=== PATIENT | male | born 1955 | race Caucasian/White ===

== ENCOUNTER 2022-08-11 10:16 | Emergency (ER) | payer OTHER ==
--- OUTSIDE RECORDS SUMMARY | 2022-08-11 10:18 | XMS REPORT | Continuity of Care Document ---
:1955 Author Organization [facility] t Address [address] [place] [address] Care Team Providers Name Role Phone Alberto Beal Attending Clinician Unavailable DALTON SIMON Attending Clinician Unavailable Problems Condition Condition Condition Status Onset Resolution Last Treating Co mments Source Name Details Category Date Date Treatment Clinician Date [id number] Primary Problem Comm on osteoarthr [facility] itis of - [facility] right hip [facility] [id number] Stage 3a Problem Comm on chronic [facility] kidney - [facility] disease [facility] [id number] Body mass Problem Com mon index Spirit [BMI] - [facility] 31.0-31.9, [facility] [id number] Mixed Problem Common hyperlipid Spirit emia - [facility] [id number] Essential Problem Comm on (primary) Spirit hypertensi - [facility] on [facility] [id number] Thoracic Problem Commo n aortic [facility] aneurysm - [facility] without [facility] [id number] Hypogonadi Problem Com mon sm in male Spirit - [facility]I [facility] [id number] Other Problem Common obesity Spirit due to - [facility] excess [facility] [id number] Elevated Problem Comm on hemoglobin Spirit - [facility] [id number] Subclinica Problem Com mon l Spirit hypothyroi - [facility] dism [facility] Allergies, Adverse Reactions, Alerts This patient has no known allergies or adverse reactions. Social History Social Habit Start Date Stop Date Quantity Comments Source History of Tobacco Use Co mmon [facility] - [facility] Sex Assigned At Com mon [facility] - [facility] Smoking Status Start Date Stop Date Source Former Smoker 2022-07-07 00:00:00 2022-07-07 00:00:00 [facility] Medications Ordered Filled Start Stop Current Ordering Indication Dosage Frequency Signature Comments Components Source Medication Medication Date Date Medication? Clinician (SIG) Name Name Sherita 7.5 Mobic 7.5 2021-08- No 1{table QD Mobic 7.5 MG MG 09-06 t} MG 00:00: 00:00 00 :00 amLODIPine amLODIPine No 1{table QD amLODIPine Besylate 10 Besylate 10 t} Besylate MG MG 10 MG Testosteron Testosteron No Testostero e e ne Aspirin Aspirin No 1{table QD Aspirin Adult Low Adult Low t} Adult Low Dose 81 MG Dose 81 MG Dose 81 MG Atorvastati Atorvastati No 1{table QD Atorvastat n Calcium n Calcium t} in Calcium 40 MG 40 MG 40 MG Testosteron Testosteron No QD Testostero e 50 MG/5GM e 50 MG/5GM ne 50 (1%) (1%) MG/5GM (1%) Carvedilol Carvedilol No 1{table BID Carvedilol 6.25 MG 6.25 MG t_with_ 6.25 MG food} Atorvastati Atorvastati No 1{table QD Atorvastat n Calcium n Calcium t} in Calcium 40 MG 40 MG 40 MG Testosteron Testosteron No QD Testostero e 50 MG/5GM e 50 MG/5GM ne 50 (1%) (1%) MG/5GM (1%) amLODIPine amLODIPine No 1{table QD amLODIPine Besylate 10 Besylate 10 t} Besylate MG MG 10 MG Carvedilol Carvedilol No 1{table BID Carvedilol 6.25 MG 6.25 MG t_with_ 6.25 MG food} Aspirin Aspirin No 1{table QD Aspirin Adult Low Adult Low t} Adult Low Dose 81 MG Dose 81 MG Dose 81 MG Testosteron Testosteron No Testostero e e ne Testosteron Testosteron No Testostero e e ne Atorvastati Atorvastati No 1{table QD Atorvastat n Calcium n Calcium t} in Calcium 40 MG 40 MG 40 MG amLODIPine amLODIPine No 1{table QD amLODIPine Besylate 10 Besylate 10 t} Besylate MG MG 10 MG Carvedilol Carvedilol No 1{table BID Carvedilol 6.25 MG 6.25 MG t_with_ 6.25 MG food} amLODIPine amLODIPine No 1{table QD amLODIPine Besylate 10 Besylate 10 t} Besylate MG MG 10 MG Testosteron Testosteron No Testostero e e ne Aspirin Aspirin No 1{table QD Aspirin Adult Low Adult Low t} Adult Low Dose 81 MG Dose 81 MG Dose 81 MG Atorvastati Atorvastati No 1{table QD Atorvastat n Calcium n Calcium t} in Calcium 40 MG 40 MG 40 MG Carvedilol Carvedilol No 1{table BID Carvedilol 6.25 MG 6.25 MG t_with_ 6.25 MG food} amLODIPine amLODIPine No 1{table QD amLODIPine Besylate 10 Besylate 10 t} Besylate MG MG 10 MG Testosteron Testosteron No Testostero e e ne Aspirin Aspirin No 1{table QD Aspirin Adult Low Adult Low t} Adult Low Dose 81 MG Dose 81 MG Dose 81 MG Atorvastati Atorvastati No 1{table QD Atorvastat n Calcium n Calcium t} in Calcium 40 MG 40 MG 40 MG Carvedilol Carvedilol No 1{table BID Carvedilol 6.25 MG 6.25 MG t_with_ 6.25 MG food} amLODIPine amLODIPine No 1{table QD amLODIPine Besylate 10 Besylate 10 t} Besylate MG MG 10 MG Testosteron Testosteron No Testostero e e ne Aspirin Aspirin No 1{table QD Aspirin Adult Low Adult Low t} Adult Low Dose 81 MG Dose 81 MG Dose 81 MG Atorvastati Atorvastati No 1{table QD Atorvastat n Calcium n Calcium t} in Calcium 40 MG 40 MG 40 MG Carvedilol Carvedilol No 1{table BID Carvedilol 6.25 MG 6.25 MG t_with_ 6.25 MG food} Aspirin Aspirin 2021- No 1{table QD Aspirin Adult Low Adult Low 03-21 t} Adult Low Dose 81 MG Dose 81 MG 00:00 Dose 81 MG :00 Vital Signs Vital Name Observation Time Observation Value Comments Source height 2022-07-07 08:00:00 75 [in_i] Common S [facility] weight 2022-07-07 08:00:00 262.9 [lb_av] [facility] temperature 2022-07-07 08:00:00 97.2 [degF] Common S [facility] bmi 2022-07-07 08:00:00 32.86 kg/m2 [facility] blood pressure 2022-07-07 08:00:00 128 mm[Hg] Common [facility] - systolic [facility] blood pressure 2022-07-07 08:00:00 83 mm[Hg] [facility] [place] [facility] blood pressure 2021-09-10 15:00:00 77 mm[Hg] [facility] diastolic [facility] height 2021-09-10 15:00:00 75 [in_i] [facility] weight 2021-09-10 15:00:00 253.1 [lb_av] [facility] temperature 2021-09-10 15:00:00 97.5 [degF] [facility] bmi 2021-09-10 15:00:00 31.63 kg/m2 [facility] oximetry 2021-09-10 15:00:00 96 % [facility] respiratory rate 2021-09-10 15:00:00 16 /min Comm on [facility] blood pressure 2021-09-10 15:00:00 113 mm[Hg] [facility] [place] [facility] height 2021-09-10 14:50:00 75 [in_i] [facility] weight 2021-09-10 14:50:00 253.1 [lb_av] [facility] temperature 2021-09-10 14:50:00 97.5 [degF] [facility] bmi 2021-09-10 14:50:00 31.63 kg/m2 [facility] oximetry 2021-09-10 14:50:00 96 % Common [facility] respiratory rate 2021-09-10 14:50:00 16 /min Comm on [facility] blood pressure 2021-09-10 14:50:00 113 mm[Hg] Common [facility] - systolic [facility] blood pressure 2021-09-10 14:50:00 77 mm[Hg] Common [facility] - diastolic [facility] height 2021-07-30 15:30:00 75 [in_i] Common [facility] weight 2021-07-30 15:30:00 255.6 [lb_av] Common [facility] temperature 2021-07-30 15:30:00 97.2 [degF] Common [facility] bmi 2021-07-30 15:30:00 31.94 kg/m2 Common [facility] oximetry 2021-07-30 15:30:00 96 % Common [facility] respiratory rate 2021-07-30 15:30:00 16 /min Comm on [facility] blood pressure 2021-07-30 15:30:00 136 mm[Hg] Common [facility] - systolic [facility] blood pressure 2021-07-30 15:30:00 84 mm[Hg] Common [facility] diastolic [facility] Procedures This patient has no known procedures. Encounters Start End Encounter Admission Attending Care Care Encounter Source Date/Time Date/Time Type Type Clinicians Facility Department ID 2022-07-07 [facility] [id number] Common 11:40:01 [facility] 2022-06-30 Outpatient Beal, STLMLC ST[facility] [id number] Common 13:33:02 [facility] 2021-09-04 Outpatient Beal, STLMLC ST[facility] [id number] Common 14:27:34 [facility] 2022-07-29 2022-07-29 Outpatient [facility] [id number] [employer] 00:00:00 00:00:00 , DALTON [address] 2022-07-29 2022-07-29 [facility] [id number] [employer] 00:00:00 00:00:00 , DALTON [address] 2022-07-07 2022-07-07 OFFICE STLMLC STLMLC [id number] Co mmon 00:00:00 00:00:00 VISIT NEW Spir it PT LEVEL 3 - CHI [facility] 2021-12-06 2021-12-06 (TEL) STLMLC STLMLC [id number] Co mmon 00:00:00 00:00:00 [facility] - [facility] 2021-09-12 2021-09-12 (TEL) STLMLC STLMLC [id number] Co mmon 00:00:00 00:00:00 [facility] - [facility] 2021-09-10 2021-09-10 SUB ANNUAL STLMLC STLMLC [id number] Common 00:00:00 00:00:00 MCR Spirit WELLNESS - CHI VISIT [facility] 2021-09-10 2021-09-10 OFFICE STLMLC STLMLC [id number] Co mmon 00:00:00 00:00:00 VISIT Spirit ESTAB PT - CHI LEVEL 4 [facility] 2021-07-30 2021-07-30 OFFICE STLMLC STLMLC [id number] Co mmon 00:00:00 00:00:00 VISIT NEW Spir it PT LEVEL 3 - [facility] Results This patient has no known results.
--- NOTE | 2022-08-11 11:19 | RAD REPORT ---
EXAM DESCRIPTION: RAD - Hand Right 3 View - 08/11/2022 10:58 am CLINICAL HISTORY: DEFORMITY, hand trauma COMPARISON: No comparisons FINDINGS: There is dorsal dislocation of the third and fourth middle phalanges from the PIP joints. No fracture component seen. There is approximately 10 mm overlap at the third PIP joint and 5 mm of o verlap at the fourth PIP joint. Elsewhere no other fracture or acute bone finding. No foreign body or significant soft tissue abnorma lity. IMPRESSION: Dorsal dislocation of the third and fourth middle phalanges from the PIP joints.
[2022-08-11] MEDS ORDERED: HYDROCODONE/APAP 7.5/325 MG TAB ONE (11:28)
[2022-08-11] MEDS ORDERED: LIDOCAINE 1% 20 ML MDV ONE (11:44)
--- NOTE | 2022-08-11 12:18 | RAD REPORT ---
EXAM DESCRIPTION: CT - Chest Abd Pelvis Wo Con - 08/11/2022 12:00 pm CLINICAL HISTORY: trauma, fall, right hand finger dislocations. COMPARISON: No comparisons TECHNIQUE: Axial 5 millimeter thick images of the chest, abdomen and pelvis were obtained without IV contrast. Oral contrast was administered. All CT scans are performed using dose optimization technique as appropriate and may include automated exposure control or mA/KV adjustment according to patient size. FINDINGS: The lungs are clear of suspicious mass, pulmonary contusion and infiltrate. A few scattere d less than 5 millimeter sized areas of nodularity are present. There are no specific follow-up recom mendations for nodules of these sizes. No pneumothorax or pleural effusion. No chest wall mass or ab normal axillary lymphadenopathy seen. Mediastinal and hilar regions show no mass or lymphadenopathy. No significant cardiac finding. The liver, spleen and pancreas show no significant findings for non contrast imaging. Gallbladder an d biliary tree are normal. No hydronephrosis or suspicious renal mass. Isodense masses and pyelonephritis cannot be excluded on non contrast imaging. No adrenal abnormalities. No urinary bladder abnormalities. No dilated bowel loops or focal ball bowel wall thickening. Minimal sigmoid diverticulosis without di verticulitis. No free air, free fluid or inflammatory stranding. No hernia, mass or bulky lymphadeno julio. Bony degenerative changes are present. No spinal compression fracture. No pathologic bone process. IMPRESSION: CT chest, abdomen and pelvis imaging shows no identifiable worse traumatic injury. No em ergent finding. Nonacute findings detailed in the body of the report.
--- NOTE | 2022-08-11 12:56 | ER ---
Nurse's Notes [facility] Name: Won Mosley Age: 67 yrs Sex: Male : 1955 Arrival Date: 08/11/2022 Time: 10:21 Bed 10 Private MD: Layton Marcial V Diagnosis: Dislocation of proximal interphalangeal joint of right middle finger, initial encounter;Dislocation of proximal interphalangeal joint of right ring finger, initial encounter Presentation: 08/11 11:01 Chief complaint: Patient states: pain and deformity noted to R 3rd and 4th fingers that ss occurred after falling and catching self. Coronavirus screen: Client denies travel out of the [place] in the last 14 days. Ebola Screen: Patient denies exposure to infectious person. Patient denies travel to an Ebola-affected area in the 21 days before illness onset. Initial Sepsis Screen: Does the patient meet any 2 criteria? No. Patient's initial sepsis screen is negative. Does the patient have a suspected source of infection? No. Patient's initial sepsis screen is negative. Risk Assessment: Do you want to hurt yourself or someone else? Patient reports no desire to harm self or others. Onset of symptoms was August 11, 2022. 11:01 Method Of Arrival: Ambulatory ss 11:01 Acuity: AUDRA 3 ss Triage Assessment: 13:05 General: Appears uncomfortable, Behavior is calm, cooperative, appropriate for age. ap3 Pain: Complains of pain in right hand. Musculoskeletal: Bony deformity noted of right hand. 13:05 Injury Description: Deformity. ap3 Historical: - Allergies: 11:02 No Known Allergies; ss - PMHx: 11:02 Hypertensive disorder; R hip impengement; ss - Immunization history:: Client reports receiving the 2nd dose of the Covid vaccine. - Social history:: Smoking status: Patient denies any tobacco usage or history of. Screenin:05 Abuse screen: Denies threats or abuse. Nutritional screening: No deficits noted. ap3 Tuberculosis screening: No symptoms or risk factors identified. 13:[address] [facility] ED Fall Risk Assessment (Adult) History of falling in the last 3 months, ap3 including since admission No falls in past 3 months (0 pts). Assessment: 10:50 Reassessment: called to triage. Pt to XRAY at this time VIA wheelchair with electrical test technician. 10:53 Reassessment: Pt back from XRAY at this time. Vital Signs: 11:01 BP 98 / 71; Pulse 64; Resp 16; Temp 97.2(TE); Pulse Ox 100% on R/A; Weight 113.4 kg; Height 6 ft. 3 in. (190.50 cm); Pain 8/10; 13:04 BP 120 / 83; ap3 11:01 Body Mass Index 31.25 (113.40 kg, 190.50 cm) ED Course: 10:21 Patient arrived in ED. am2 10:21 Layton Marcial MD is Private Physician. am2 10:22 Chioma Guadalupe FNP is [facility]. jh7 10:22 Carrol Palma MD is Attending Physician. [facility] 11:00 XRAY Hand RIGHT 3 View In Process Unspecified. EDMS 11:02 Triage completed. 11:02 Arm band placed on right wrist. 11:22 Aure Carrasquillo, ROSA is Primary Nurse. ap3 12:02 Chest Abdomen Pelvis Wo Con CT In Process Unspecified. EDMS 13:01 XRAY Hand RIGHT 3 View In Process Unspecified. EDMS 13:05 No provider procedures requiring assistance completed. Patient did not have IV access ap3 during this emergency room visit. 13:06 Patient has correct armband on for positive identification. ap3 Administered Medications: 11:37 Drug: [place] (HYDROcodone-acetaminophen) (7.5 mg-325 mg) 1 tabs Route: PO; ap3 13:06 Follow up: Response: No adverse reaction; Pain is decreased ap3 12:26 Drug: Lidocaine (1 %) 10 ml {Note: by provider.} Volume: 20 ml; Route: Infiltration; ap3 13:06 Follow up: Response: No adverse reaction ap3 Medication: 13:05 VIS not applicable for this client. ap3 Outcome: 12:56 Discharge ordered by . jh7 13:05 Discharged to home ambulatory. ap3 13:05 Condition: good 13:05 Discharge instructions given to patient, Instructed on discharge instructions, follow up and referral plans. Demonstrated understanding of instructions, follow-up care. 13:13 Patient left the ED. ap3 Signatures: Dispatcher [employer] EDNY Vaishnavi Loera RN RN ss Aure Campbell am2 Aure Carrasquillo, ROSA RN ap3 Chioma Guadalupe, QUALITY CONTROL AUDITOR QUALITY CONTROL AUDITOR jh7
--- NOTE | 2022-08-11 12:57 | EDPHYS ---
Physician Documentation [facility] Name: Won Mosley Age: 67 yrs Sex: Male : 1955 Arrival Date: 08/11/2022 Time: 10:21 Bed 10 Private MD: Layton Marcial V ED Physician Carrol Palma HPI: 08/11 10:30 This 67 yrs old Male presents to ER via Ambulatory with complaints of Finger Injury, jh7 Fall Injury. 10:30 Trauma demographics: Location of Injury: The injury occurred at home, Date: August 112022. Mechanism of injury: Fall: the patient fell from a standing position and struck wood estefani. Associated injuries: The patient sustained right hand, decreased range of motion, deformity, painful injury, swelling. Onset: The symptoms/episode began/occurred acutely. Patient reports that he was walking with his cane due to an old right hip injury, tripped and fell with his fingers bent. Complains of deformity to the right third and fourth digit. Also complains of right hip pain.. Historical: - Allergies: 11:02 No Known Allergies; ss - PMHx: 11:02 Hypertensive disorder; R hip impengement; ss - Immunization history:: Client reports receiving the 2nd dose of the Covid vaccine. - Social history:: Smoking status: Patient denies any tobacco usage or history of. ROS: 10:30 Constitutional: Negative for fever, chills, and weight loss, Eyes: Negative for injury, jh7 pain, redness, and discharge, ENT: Negative for injury, pain, and discharge, Neck: Negative for injury, pain, and swelling, Cardiovascular: Negative for chest pain, palpitations, and edema, Respiratory: Negative for shortness of breath, cough, wheezing, and pleuritic chest pain, Abdomen/GI: Negative for abdominal pain, nausea, vomiting, diarrhea, and constipation, Back: Negative for injury and pain, Skin: Negative for injury, rash, and discoloration, Neuro: Negative for headache, weakness, numbness, tingling, and seizure. 10:30 MS/extremity: Positive for injury or acute deformity, decreased range of motion, pain, swelling. 10:30 All other systems are negative. Exam: 10:30 Constitutional: This is a well developed, well nourished patient who is awake, alert, jh7 and in no acute distress. Head/Face: Normocephalic, atraumatic. Eyes: Pupils equal round and reactive to light, extra-ocular motions intact. Lids and lashes normal. Conjunctiva and sclera are non-icteric and not injected. Cornea within normal limits. Periorbital areas with no swelling, redness, or edema. Neck: Trachea midline, no thyromegaly or masses palpated, and no cervical lymphadenopathy. Supple, full range of motion without nuchal rigidity, or vertebral point tenderness. No Meningismus. Cardiovascular: Regular rate and rhythm with a normal S1 and S2. No gallops, murmurs, or rubs. Normal PMI, no JVD. No pulse deficits. Respiratory: Lungs have equal breath sounds bilaterally, clear to auscultation and percussion. No rales, rhonchi or wheezes noted. No increased work of breathing, no retractions or nasal flaring. Abdomen/GI: Soft, non-tender, with normal bowel sounds. No distension or tympany. No guarding or rebound. No evidence of tenderness throughout. Back: No spinal tenderness. No costovertebral tenderness. Full range of motion. Skin: Warm, dry with normal turgor. Normal color with no rashes, no lesions, and no evidence of cellulitis. Neuro: Awake and alert, GCS 15, oriented to person, place, time, and situation. Motor strength 5/5 in all extremities. Sensory grossly intact. Normal gait. 10:30 Musculoskeletal/extremity: ROM: limited active range of motion, Circulation is intact in all extremities. Sensation intact. Swelling and deformity noted at the left PIP joints of the third and fourth digit. Decreased active range of motion due to pain and swelling.. 10:30 Musculoskeletal/extremity: R hip pain with no TTP. Full ROM. Vital Signs: 11:01 BP 98 / 71; Pulse 64; Resp 16; Temp 97.2(TE); Pulse Ox 100% on R/A; Weight 113.4 kg; ss Height 6 ft. 3 in. (190.50 cm); Pain 8/10; 13:04 BP 120 / 83; ap3 11:01 Body Mass Index 31.25 (113.40 kg, 190.50 cm) ss Procedures: 12:00 Reduction: of the R 3rd and 4th digits, using manipulation, Immobilized with finger [facility] splint, Patient tolerated well. Post reduction film - reveals normal alignment. Nerve block: (digital) of palmar aspect of proximal phalanx of right ring finger and palmar aspect of proximal phalanx of right middle finger Medication: Lidocaine 1% without epinephrine Amount: 7 mls were injected, Effect: the patient's symptoms are improved, markedly, Set up for procedure. Performed by Chioma VO Patient tolerated well. MDM: 10:22 Patient medically screened. [facility] 12:35 Differential diagnosis: Phalanx fracture, phalanx dislocation, phalanx sprain. Data [facility] reviewed: vital signs, nurses notes, EKG. Data reviewed: radiologic studies, CT scan. Data interpreted: Pulse oximetry:. Data interpreted: Pulse oximetry: Interpretation: normal. Counseling: I had a detailed discussion with the patient and/or guardian regarding: the historical points, exam findings, and any diagnostic results supporting the discharge/admit diagnosis, to return to the emergency department if symptoms worsen or persist or if there are any questions or concerns that arise at home. Response to treatment: the patient's symptoms have resolved after treatment. 08/11 10:31 Order name: XRAY Hand RIGHT 3 View; Complete Time: 11:38 [facility] 08/11 11:42 Order name: Chest Abdomen Pelvis Wo Con CT; Complete Time: 12:25 [facility] 08/11 12:18 Order name: XRAY Hand RIGHT 3 View; Complete Time: 15:32 [facility] 08/11 12:18 Order name: VS Recheck; Complete Time: 13:13 [facility] 08/11 12:34 Order name: Finger Splint; Complete Time: 13:13 [facility] Administered Medications: 11:37 Drug: [place] (HYDROcodone-acetaminophen) (7.5 mg-325 mg) 1 tabs Route: PO; ap3 13:06 Follow up: Response: No adverse reaction; Pain is decreased ap3 12:26 Drug: Lidocaine (1 %) 10 ml {Note: by provider.} Volume: 20 ml; Route: Infiltration; ap3 13:06 Follow up: Response: No adverse reaction ap3 Disposition: 18:40 STAFF ATTESTATION: The patient's history, exam findings, diagnostics and a summary of sd2 any interventions or procedures was reviewed in detail with the ED SANDY. I confirm the diagnosis as documented by the SANDY and I agree with the care plan articulated in the disposition section with regards to our discussion of the patient's case. Carrol Palma MD. Disposition Summary: 08/11/22 12:56 Discharge Ordered Location: Home [facility] Problem: new jh7 Symptoms: are resolved jh7 Condition: Stable jh7 Diagnosis - Dislocation of proximal interphalangeal joint of right middle finger, initial jh7 encounter - Dislocation of proximal interphalangeal joint of right ring finger, initial jh7 encounter Followup: [facility] - With: Private Physician - When: 2 - 3 days - Reason: Recheck today's complaints Discharge Instructions: - Discharge Summary Sheet [facility] - Finger or Thumb Dislocation [facility] Forms: - Medication Reconciliation Form [facility] - Thank You Letter [facility] Signatures: Dispatcher [employer] EDVaishnavi Valencia RN RN Aure Carrasquillo RN RN ap3 Chioma Guadalupe, POT ANNEALER POT ANNEALER [facility] Carrol Palma MD MD sd2 Corrections: (The following items were deleted from the chart) 12:03 11:42 Hip Right 2 View+[email or web address] ordered. EDMS EDMS
--- NOTE | 2022-08-11 13:05 | RAD REPORT ---
EXAM DESCRIPTION: RAD - Hand Right 3 View - 08/11/2022 12:59 pm CLINICAL HISTORY: Finger dislocation FINDINGS: Dislocations involving the third and fourth phalanges has been reduced. No fracture seen
[2022-08-11 13:17] VITALS: TEMP 97.2; O2SAT 100
[2022-08-11 13:18] VITALS: BP 120/83
== END 2022-08-11 13:13 | disposition home or self-care (01) ==
LOC: ER 10:16
DX: S63.282A Dislocation of proximal interphalangeal joint of right middle finger, initial encounter (principal); S63.284A Dislocation of proximal interphalangeal joint of right ring finger, initial encounter; M25.551 Pain in right hip
CPT/HCPCS: 64450; 71250; 74176; 99283